=== PATIENT | male | born 1960 | race Caucasian/White ===

== ENCOUNTER → 2016-08-14 | Outpatient (CLI) | payer MEDICAID ==
--- NOTE | 2016-08-14 16:47 | DX ---
Right Hip, Two Views Indication: Hip pain Technique: AP and frog-leg lateral views. Comparison: None Findings: The bones are normally mineralized. No acute fracture. A left total hip arthroplasty is wel l seated. Minimal osteoarthritis of the right hip is evidenced by joint space narrowing and small mar ginal osteophytes emanating off the acetabular roof. Minimal symmetric osteoarthritis involves the sa croiliac joints and pubic symphysis. Impression: 1. Minimal right hip osteoarthritis. 2. No fracture or bone lesion.
== END ==
LOC: CIMAGING 13:52
PROVIDERS: ATTEND Internal Medicine
DX: M16.11 Unilateral primary osteoarthritis, right hip (principal)
CPT/HCPCS: 73502-PO

== ENCOUNTER → 2017-09-10 | Outpatient (CLI) | payer OTHER | LOC: CIMAGING 15:30 | PROVIDERS: ATTEND Internal Medicine | DX: M25.511 Pain in right shoulder (principal) | CPT/HCPCS: 73030-PO ==

== ENCOUNTER 2017-10-06 13:32 | Emergency (ER) | payer OTHER ==
--- NOTE | 2017-10-06 13:54 | CPEKG ---
Heart Rate: 79 RR Interval: 759 P-R Interval: 144 QRSD Interval: 92 QT Interval: 384 QTC Interval: 441 P [place]: -3 QRS [place]: -28 T Wave [place]: 35 EKG Severity - ABNORMAL ECG - EKG Impression: SINUS RHYTHM EKG Impression: LEFTWARD AXIS EKG Impression: RHYTHM CONSISTENT WITH DDD PACING EKG Impression: DELAYED R WAVE PROGRESSION Electronically Signed By: Omar Man 08-Oct-2017 10:51:11
[2017-10-06] MEDS ORDERED: IPRATROPIUM/ALBUTEROL 3 ML DEYVIAL IH ONE (14:14)
[2017-10-06 14:33] LABS: PLATELET COUNT 205 10^3/uL (150-400)
--- NOTE | 2017-10-06 14:53 | EDPHY ---
H & P Stated Complaint: c/o SOB inc with exsertion and swoolen feet/ankles - since last week Source: Patient Exam Limitations: No limitations - Personal History Current Tetanus Diphtheria and Acellular Pertussis (TDAP): Yes - Medical/Surgical History Hx Asthma: No Hx Chronic Respiratory Disease: Yes Hx Diabetes: No Hx Cardiac Disease: No Hx Renal Disease: No Hx Cirrhosis: No Hx Alcoholism: No Hx HIV/AIDS: No Hx Splenectomy or Spleen Trauma: No Other PMH: HTN, BIPOLAR, fibromyalgia, OSTEOARTHRITIS - Family History Significant Family History: No pertinent family hx - Social History Smoking Status: Current every day smoker Alcohol Use: Occasionally Drug Use: None Time Seen by Provider: 10/06/17 13:59 HPI/ROS: This patient complains of dyspnea. He explains that he has a history of acid reflux and he awakened 5 nights ago last Friday the feeling of aspiration he "vomited in his mouth and it went down the wrong pipe"he coughed and gagged for a period of time and then gradually improved. 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 He notes no other exacerbating for his symptoms. He also does note some swelling in his right lower extremity that is idiopathic. He notes very slight medial ankle tenderness when he inverted his ankle but denies any recent ankle injuries that extremity. He also feels as very slight left lower extremity swelling. The patient felt that he had more relief of his COPD symptoms while on Dulera but this insurance recently denied at any was starting QVAR instead he does not think this works as well for him. Patient came in by private vehicle for evaluation of the symptoms. ROS: Constitutional: No fevers or chills. No fatigue. HEENT: No URI symptoms. No other complaints pulmonary: He reports no increase in his occasional baseline dry cough. No hemoptysis. No respiratory distress at baseline. Cardiovascular: No chest pain. No heart palpitations. No lightheadedness. GI: No abdominal pain. Maintains good appetite. No nausea or vomiting. Normal bowel movements. : No complaints new line integumentary: No skin rash pallor diaphoresis Endocrine: No complaints Neuro: No headaches, focal numbness tingling weakness Complete review of symptoms is otherwise negative. (Eb Hurtado) - Physical Exam Exam: Vital signs notable for hypertension. O2 sats 95% room air. Otherwise normal. General Appearance: Alert, no distress. Eyes: Pupils equal and round no pallor or injection. ENT, Mouth: Mucous membranes moist. Respiratory: Mild wheezing bilaterally with diminished breath sounds at the bases. Cardiovascular: Regular rate and rhythm. No murmur gallop rub. No JVD. He has right leg moderate edema-pitting 1+. No significant left leg edema. Homans is negative. Gastrointestinal: Abdomen is soft and nontender, no masses, bowel sounds normal. Neurological: GCS 15 with no focal deficits. Skin: Warm and dry, no rashes. Extremities are symmetrical, full range of motion. Psychiatric: Mood and affect normal DIFFERENTIAL DIAGNOSIS: After history and physical exam differential diagnosis was considered for aspiration pneumonitis, COPD exacerbation, pneumonia, pulmonary embolism, dependent edema, DVT, gout, ankle strain or sprain, myocardial ischemic disease (Eb Hurtado) Constitutional: Initial Vital Signs Temperature (C) 37.2 C 10/06/17 13:47 Heart Rate 85 10/06/17 13:47 Respiratory Rate 18 10/06/17 13:47 Blood Pressure 188/100 H 10/06/17 13:47 O2 Sat (%) 95 10/06/17 13:47 O2 Delivery Mode Room Air Allergies/Adverse Reactions: No Known Allergies Allergy (Unverified 08/17/13 19:09) Home Medications: Medication Instructions Recorded Lisinopril/Hydrochlorothiazide 1 ea PO DAILY #14 tablet 08/17/13 [Lisinopril-Hctz 10-12.5 mg Tab] Albuterol 09/24/14 Atenolol 09/24/14 CYCLOBENZAPRINE HCL 09/24/14 Citalopram 09/24/14 Dulera 100 Mcg/5 Mcg Inhaler 09/24/14 LORAZEPAM 09/24/14 Proair Hfa Icu (RX) 09/24/14 Albuterol Hfa Anes Only [Proair 2 puffs IH Q4 PRN #1 mdi 10/06/17 Hfa Icu (*)] predniSONE 60 mg PO DAILY #10 tab 10/06/17 Medical Decision Making - Diagnostics EKG Interpretation: 12 lead EKG performed at 1:52 p.m. Shortly after arrival Sinus rhythm at 79 Intervals: Normal throughout [place]: P of -3, QRS of -20, T of [address] segments: Normal throughout Overall assessment sinus rhythm with left axis deviation-borderline (Eb Hurtado) ED Course/Re-evaluation: DuoNeb with improvement in breathing, decrease dyspnea. Prednisone 60 mg p.o. Labs: Normal CBC, basic metabolic panel, normal D-dimer. Troponin is pending Discussion: 56-year-old male presents with increasing dyspnea with history of COPD. He continues to smoke. He had an aspiration episode from GERD 5 days prior to arrival to triggered worsening dyspnea. I suspect he had a mild pneumonitis associated with this that worsens his baseline dyspnea. Currently with workup, no evidence of pneumonia. Also do not think he has an episode of infectious bronchitis at this time. Given lack of fever white count will hold off on antibiotics. Encouraged him to stop smoking. Do not think he has thromboembolic phenomenon given normal D-dimer. I suspect that the swelling the right lower extremity is dependent edema mixed with the mild leg strain or ankle strain. Clinically is not consistent with an ankle sprain. Counseled him regarding this. At 3:00 p.m. I discussed this case with Dr. Granados, the [facility] emergency physician who will follow up on his troponin results and finalize disposition. ( Eb Hurtado) Other Provider: 1500 care assumed by me from Dr. Hurtado pending troponin results. 1520 troponin is negative. Remainder of his investigations are unremarkable. Will discharge home per Dr. Hurtado's plan. (Juan Granados) - Data Points Laboratory Results: Laboratory Results 10/06/17 14:25 10/06/17 14:25 Medications Given: Discontinued Medications Albuterol/Ipratropium (Duoneb) 3 ml IH EDNOW ONE Stop: 10/06/17 14:15 Last Admin: 10/06/17 14:28 Dose: 3 ml Aspirin (Aspirin) 324 mg PO EDNOW ONE Stop: 10/06/17 14:57 Last Admin: 10/06/17 15:07 Dose: 324 mg Prednisone (Prednisone) 60 mg PO EDNOW ONE Stop: 10/06/17 15:01 Last Admin: 10/06/17 15:07 Dose: 60 mg Departure - Departure Disposition: Home, Routine, Self-Care Clinical Impression: COPD exacerbation Condition: Good Instructions: How to Stop Smoking (ED), COPD (Chronic Obstructive Pulmonary Disease) (ED) Additional Instructions: Diagnosis: COPD exacerbation Plan: Prednisone as prescribed Albuterol inhaler with spacer for cough, wheeze or shortness of breath Quit smoking Consider follow up with the director of special services listed below for further evaluation Cardio primary care physician for recheck in 3-5 days. Return emergency department for any significant worsening despite the treatment plan. Referrals: Anya Sargent MD [Primary Care Provider] - As per Instructions Esdras Santos MD [Medical Doctor] - As per Instructions Prescriptions: Albuterol Hfa Anes Only [Proair Hfa Icu (*)] 2 puffs IH Q4 PRN #1 mdi PRN Reason: Wheezing predniSONE 60 mg PO DAILY #10 tab
[2017-10-06] MEDS ORDERED: ASPIRIN 81 MG CHEWABLE TAB PO ONE (14:56)
[2017-10-06] MEDS ORDERED: predniSONE 20 MG TAB PO ONE (15:00)
[2017-10-06 15:40] VITALS: BP 135/89
== END 2017-10-06 15:37 | disposition home or self-care (01) ==
LOC: CED 13:32
DX: J44.1 Chronic obstructive pulmonary disease with (acute) exacerbation (principal); I10 Essential (primary) hypertension; F17.200 Nicotine dependence, unspecified, uncomplicated
CPT/HCPCS: 71046-PO; 80048-PO; 84484-PO; J7512

== ENCOUNTER → 2018-06-30 | Outpatient (CLI) | payer OTHER | LOC: CIMAGING 16:48 | PROVIDERS: ATTEND Internal Medicine | DX: J98.4 Other disorders of lung (principal) | CPT/HCPCS: 71046-PO; 73502-PO ==